=== PATIENT | female | born 1995 | race Caucasian/White ===

== ENCOUNTER 2021-08-08 18:54 | Emergency (ER) | payer OTHER, SELFPAY ==
[2021-08-08 18:55] VITALS: BP 115/84; PULSE 92; RESP 14; TEMP 36.8; O2SAT 96; BMI 24.2
--- NOTE | 2021-08-08 19:15 | EX.ED.DYSGE1 ---
HPI History of Present Illness Chief Complaint: Abd Pain Informant: patient Onset/Context/Timing Onset: Today Context: Gradual Onset Current Severity: Moderate Maximum Severity: Severe Narrative Narrative: Patient presents secondary to epigastric abdominal pain. Patient started this morning. She was able to eat to bagels for breakfast without difficulty. Since then she had increasing pain to the epigastrium with nausea and vomiting. No diarrhea. No recent alcohol consumption. No history of gallstones. She has tried Pepto, Tums, Margoth-Pamplico without improvement. No prior abdominal surgeries. [facility] Medical History (Updated 08/08/21 @ 20:[address] 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 Home Medications dicyclomine 20 mg PO BID PRN #20 tab 08/08/21 [Rx Last Taken Unknown] omeprazole 40 mg PO DAILY 14 Days #14 cap 08/08/21 [Rx Last Taken Unknown] ondansetron 4 mg PO Q8H PRN #10 tab 08/08/21 [Rx Last Taken Unknown] Allergy/AdvReac Type Severity Reaction Status Date / Time diphenhydramine Allergy Hives Verified 08/08/21 18:57 [From Benadryl] Social History Smoking Status: Current every day smoker tobacco type: cigarettes ROS ROS ED Constitutional Constitutional ED: Denies chills or fever(s) Eyes Eyes: Denies change in vision ENT ENT ED: Denies sore throat Cardiovascular Cardiovascular: Denies chest pain Respiratory/Chest Respiratory/Chest: Denies cough or dyspnea Gastrointestinal Gastrointestinal: Reports abdominal pain, nausea and vomiting; Denies diarrhea Genitourinary Genitourinary ED: Denies dysuria Musculoskeletal Musculoskeletal: Denies back pain Integumentary Denies rash Neurologic Neurologic: Denies headache(s) or weakness Allergic/Immunologic Allergic/Immunologic ED: Denies urticaria EXAM Physical Exam Const Vital Signs: 08/08/21 18:55 Temperature 98.2 F Temperature Source Temporal Pulse Rate 92 Respiratory Rate 14 Blood Pressure 115/84 H Blood Pressure Mean 94 Pulse Ox 96 Oxygen Delivery Method Room Air Positive well nourished and well developed General Appearance ED: well developed HEENT Reports moist mucous membranes Eyes PERRL and EOMs intact bilaterally Neck supple Chest Wall inspection of chest normal and palpation of chest normal Resp normal respiratory effort and clear to auscultation bilaterally Cardio regular rate and regular rhythm GI Auscultation: hypoactive bowel sounds Palpation: soft and tender epigastric Extremity normal to inspection Neuro oriented x3 Sensorium / Orientation: alert Psych Mood & Affect: anxious Skin no rashes or lesions noted MDM MDM MDM Narrative Medical decision making narrative: Patient given morphine and Zofran along with Protonix. IV fluids given. Lab work obtained. Lab Data Attestation: I reviewed the patient's lab results. Labs: Laboratory Results - last 24 hr 08/08/21 08/08/21 08/08/21 19:30 19:30 19:30 WBC 9.8 RBC 4.31 Hgb 12.1 Hct 36.4 L MCV 84.5 MCH 28.1 MCHC 33.2 RDW Std Deviation 39.5 RDW Coeff of Evelio 12.7 Plt Count 212 MPV 11.3 Immature Gran % (Auto) 0.100 Neut % (Auto) 84.9 H Lymph % (Auto) 8.8 L [place] % (Auto) 4.4 Eos % (Auto) 1.5 Baso % (Auto) 0.3 Absolute Neuts (auto) 8.3 H Absolute Lymphs (auto) 0.86 Nucleated RBC % 0 Sodium 138 Potassium 4.0 Chloride 110 H Carbon Dioxide 22.0 Anion Gap 6 BUN 12 Creatinine 0.68 Estim Creat Clear Calc 111.82 Est GFR (MDRD) Af Amer 134 Est GFR (MDRD) Non-Af 111 BUN/Creatinine Ratio 17.7 Glucose 101 Calcium 8.1 L Total Bilirubin 0.30 Direct Bilirubin 0.08 AST 13 L ALT 16 Alkaline Phosphatase 82 Total Protein 7.4 Albumin 3.7 Globulin 3.7 Lipase 79 Serum , Qual NEGATIVE Treatment and Re-Evaluation Comments:: On repeat evaluation patient sleeping comfortably. She is easily awoken. Lab work reviewed with her and unremarkable. She states her pain at this time is resolved. I will write her prescriptions for Prilosec, Zofran, and Bentyl. Return instructions provided. She is given a work note for tonight. Discharge Plan Triage Chief Complaint: Abd Pain ED Provider: Estefany Dickson Dx/Rx/DC Orders Clinical Impression: Epigastric pain Instructions: ED PEPTIC ULCER vs GASTRITIS Prescriptions: New ondansetron 4 mg tablet,disintegrating 4 mg PO Q8H PRN (Reason: nausea and vomiting) Qty: 10 RF: 0 dicyclomine 20 mg tablet 20 mg PO BID PRN (Reason: abdominal cramping) Qty: 20 RF: 0 omeprazole 40 mg capsule,delayed release(DR/EC) 40 mg PO DAILY 14 Days Qty: 14 RF: 0 Stand Alone Forms: ED Work / School Excuse Primary Care Provider: Care Physician,No Primary Referrals: Shae Abarca MD [STAFF PHYSICIAN] - As Needed Care Physician,No Primary [Primary Care Provider] - Disposition Disposition: Home, Self Care
[2021-08-08] MEDS: Morphine 4 MG/ML Syringe IV (19:40)
[2021-08-08] MEDS: 0.9% Normal Saline 1,000 ML 1000 ML IV (19:40)
[2021-08-08] MEDS: Ondansetron 4 MG/2 ML Vial IV (19:41)
[2021-08-08 19:48] LABS: Absolute Lymphocyte Count 0.86 X10^3/uL (0.83-4.51); Absolute Neutrophil Count 8.3 X10^3/uL (2.0-7.7); Basophil# 0.03 X10^3/uL; Basophil% 0.3 % (0-1); Eosinophil# 0.15 X10^3/uL; Eosinophils% 1.5 % (0-5); Hematocrit 36.4 % (37-47); Hemoglobin 12.1 g/dL (12.0-15.0); Lymphocyte # 0.86 X10^3/ul (0.83-4.51); Lymphocyte % 8.8 % (19-41); Mean Corp Hgb Conc 33.2 g/dL (32-36); Mean Corpuscular Hgb 28.1 pg (27.0-32.0); Mean Corpuscular Volume 84.5 fL (81-99); Mean Platelet Vol. 11.3 fl (6.2-12.0); Monocyte# 0.43 X10^3/uL; Monocyte% 4.4 % (0-10); NRBC Flagged by Analyzer 0 % (0-5); Neutrophil # 8.28 X10^3/uL (2.7-7.7); Neutrophil % 84.9 % (47-70); Platelet Count 212 K/mm3 (150-450); RBC Distribution Width CV 12.7 % (11.6-14.6); RBC Distribution Width SD 39.5 fl (35.1-43.9); Red Blood Count 4.31 M/mm3 (4.2-5.4); White Blood Count 9.8 K/mm3 (4.4-11.0)
[2021-08-08 20:15] LABS: AST(SGOT) 13 U/L (15-37); Alanine Aminotransfer ALT/SGPT 16 U/L (13-56); Albumin, Serum 3.7 g/dL (3.2-5.0); Alkaline Phosphatase 82 U/L (45-117); Anion Gap 6 (5-15); BUN 12 mg/dL (7-18); BUN/Creat Ratio 17.7 RATIO (10-20); Bilirubin, Direct 0.08 mg/dL (0.00-0.30); Calcium,Total 8.1 mg/dL (8.5-10.1); Chloride 110 mmol/L (98-107); Creatinine, Serum 0.68 mg/dL (0.55-1.02); EST Glomerular Filtration Rate 111 mL/min (>60); Est Glom Filt Rate - Afr Amer 134 mL/min (>60); Estimated Creatinine Clearance 111.82 ml/min; Globulin 3.7 g/dL (2.2-4.2); Glucose 101 mg/dL (74-106); Lipase 79 U/L (73-393); Protein, Total 7.4 g/dL (6.4-8.2); Sodium Level 138 mmol/L (136-145)
[2021-08-08 20:17] LABS: Internal QC Validated? YES +Cl - CLEAR BKGD; Pregnancy, Serum, hCG Quali. NEGATIVE Negative
== END 2021-08-08 20:47 | disposition home or self-care (01) ==
PROVIDERS: Emergency Provider Emergency Medicine; Visit Provider Emergency Medicine
DX: R10.13 Epigastric pain (principal); F17.210 Nicotine dependence, cigarettes, uncomplicated; R11.2 Nausea with vomiting, unspecified
CPT/HCPCS: 80048; 80076; 83690; 84703; 85025; 96365; 96375; 99283; J7030; A4216; J2405

== ENCOUNTER 2022-08-10 16:05 | Emergency (ER) | payer SELFPAY ==
[2022-08-10 16:06] VITALS: BP 116/79; PULSE 62; RESP 14; TEMP 36.8; O2SAT 98; BMI 25.1
[2022-08-10 16:18] VITALS: BP 122/74; PULSE 77; RESP 15; TEMP 36.9; O2SAT 99
--- NOTE | 2022-08-10 16:43 | EX.ED.DYSGE1 ---
HPI History of Present Illness Chief Complaint: Wound Informant: patient Narrative Narrative: Worsening swelling to chin over the past week. Now increased tenderness due to swelling. No fevers no drainage no trauma. No history of similar. History of iron deficient anemia takes [id number] medications does not have a PCP. Allergy to Benadryl. 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 Kidney stones Home Medications dicyclomine 20 mg tablet 20 mg PO BID PRN abdominal cramping #20 tabs 08/08/21 [Rx Last Taken Unknown] omeprazole 40 mg capsule,delayed release 40 mg PO DAILY 14 days #14 caps 08/08/21 [Rx Last Taken Unknown] ondansetron 4 mg disintegrating tablet 4 mg PO Q8H PRN nausea and vomiting #10 tabs 08/08/21 [Rx Last Taken Unknown] doxycycline hyclate 100 mg capsule 100 mg PO BID #20 caps 08/10/22 [Rx Last Taken Unknown] Allergy/AdvReac Type Severity Reaction Status Date / Time diphenhydramine Allergy Hives Verified 08/08/21 18:57 [From Benadryl] Social History Smoking Status: Current every day smoker tobacco type: cigarettes ROS ROS ED Constitutional Constitutional ED: Denies chills, fever(s) or sweats Eyes Eyes: Denies change in vision ENT ENT ED: Denies dysphagia or sore throat Cardiovascular Cardiovascular: Denies chest pain, leg edema, palpitations or racing heartbeat Respiratory/Chest Respiratory/Chest: Denies cough, dyspnea or dyspnea on exertion Gastrointestinal Gastrointestinal: Denies abdominal pain, diarrhea, nausea or vomiting Genitourinary Genitourinary ED: Denies dysuria, hematuria or urinary frequency Musculoskeletal Musculoskeletal: Denies back pain, extremity pain or neck pain Integumentary Reports wounds; Denies rash Neurologic Neurologic: Denies headache(s), paresthesias or weakness EXAM Physical Exam Const Vital Signs: 08/10/22 16:06 08/10/22 16:18 08/10/22 17:22 Temperature 98.2 F 98.4 F 98.2 F Temperature Source Temporal Temporal Temporal Pulse Rate 62 77 70 Respiratory Rate 14 15 14 Blood Pressure 116/79 122/74 H 134/80 H Blood Pressure Mean 91 90 98 Pulse Ox 98 99 99 Oxygen Delivery Method Room Air Room Air Room Air Positive well nourished and well developed General Appearance ED: well developed and NAD HEENT Reports moist mucous membranes HEENT Narrative: Examination golf ball size swelling induration lower chin, erythema local to this region, is tender to palpation no fluctuance. No drainage. There is a small irritation skin right lower chin. No active drainage. normocephalic Eyes PERRL, EOMs intact bilaterally and conjunctivae normal General Eye ED: Yes normal appearance of both eyes Neck no lymphadenopathy and supple General: Negative for tenderness Chest Wall Chest: Negative for tenderness Resp normal respiratory effort and normal air movement Effort and Inspection: symmetric chest movement; Negative for respiratory distress Cardio regular rate, regular rhythm and no murmurs Peripheral Pulses: pulses 2+ throughout GI normal to inspection, nondistended, normoactive bowel sounds and non-tender Palpation: Negative for guarding or rebound tenderness present Back/Spine no CVA tenderness and no thoracic nor lumbar tenderness Extremity normal to inspection General Extremety ED: Negative for edema or tenderness General Extremity: Negative for edema Neuro oriented x3 and no sensory deficits noted Sensorium / Orientation: awake and alert Skin no rashes or lesions noted and no wounds MDM MDM MDM Narrative Medical decision making narrative: Patient new swelling chin. Differential cellulitis versus abscess. I placed a bedside ultrasound there is minimal fluid collection right lower. Discussed with patient for needle aspiration try to help with symptoms with at least creating a tract to help with drainage and improvement. She agrees. Performed there was serosanguineous fluid with mild exudates. She is covered with doxycycline. She is given follow-up as an outpatient. Return precautions. All questions were answered. Procedure note: Verbal consent. Needle aspiration. Skin was prepped with alcohol pad, 2 cc 1% lidocaine used for local analgesia. Betadine prep of the skin, 18-gauge needle advanced lower right chin with aspiration. There was minimal exudates with serosanguineous fluid. Multiple regions were aspirated at the 3, 12 and 11:00 positions. Patient tolerated procedure well. Bandage was placed by myself. Discharge Plan Triage Chief Complaint: Wound ED Provider: Mario Edgar Dx/Rx/DC Orders Clinical Impression: Abscess or cellulitis of chin Instructions: Abscess Drainage Prescriptions: New doxycycline hyclate 100 mg capsule 100 mg PO BID Qty: 20 0RF No Action ondansetron 4 mg tablet,disintegrating 4 mg PO Q8H PRN (Reason: nausea and vomiting) Qty: 10 0RF dicyclomine 20 mg tablet 20 mg PO BID PRN (Reason: abdominal cramping) Qty: 20 0RF omeprazole 40 mg capsule,delayed release(DR/EC) 40 mg PO DAILY 14 Days Qty: 14 0RF Primary Care Provider: Care Physician,No Primary Referrals: Ngozi Jon [Non-Staff] - 1-2 Weeks Care Physician,No Primary [Primary Care Provider] - Activity Restrictions/Additional Instructions: Status post needle drainage. Take antibiotic as prescribed. Follow-up as an outpatient. Return if worsening symptoms. Disposition Disposition: Home, Self Care Discharge Date/Time: 08/10/22 17:25
[2022-08-10] MEDS: Doxycycline 100 MG CAPSULE PO (16:54)
[2022-08-10 17:22] VITALS: BP 134/80; PULSE 70; RESP 14; TEMP 36.8; O2SAT 99
== END 2022-08-10 17:25 | disposition home or self-care (01) ==
PROVIDERS: Emergency Provider Emergency Medicine; Visit Provider Emergency Medicine
DX: L02.01 Cutaneous abscess of face (principal); L03.211 Cellulitis of face; F17.210 Nicotine dependence, cigarettes, uncomplicated
CPT/HCPCS: 10160; 99283; A4216

== ENCOUNTER 2025-01-05 14:40 | Outpatient (RCR) | payer OTHER, SELFPAY ==
--- NOTE | 2025-01-05 15:50 | HP.PTEVAL_ITS ---
Patient's Visit Information Visit Information Visit Information: MARCELINO SKELTON is a 29 year old F referred to Physical Therapy by IGNACIO Hewitt with a diagnosis of Lumbar strain. Date of Evaluation: 01/05/25 Physical Therapist: Maldonado Acevedo, PT, ATC Visit Plan Frequency: 2-3x /Week Duration: 4 Weeks Plan: Postural edu, prone prop progression, REIL, core strengthening, and HEP Subjective Subjective: Pt reports she injured her LB on 12/22/24 while lifting an object at work. Pt reports she has been doing this job for many months, but this is the first time she actually hurt her LB. Pt reports this is the worst pain she has ever had. Pt denies any tingling or numbness at this time. Pt reports sleep difficulty at this time secondary to pain. Pt reports she has had xrays which revealed no significant findings. Pt reports she is in pain whether she is sitting, standing, laying down, and all activity. Pt reports she is not able to go grocery shopping, clean her laundry, or clean her house secondary to pain. Pt reports forward bending is what gives her the most pain. Pt also notes bending backwards causes increased pain. Pt also has pain sit standing up after sitting for a while. Pt reports her pain ranges from 4-8/10 at this time. Pain LBP: Pain Intensity (Out of 10): 4 Pain Intensity Range: 8 Objective Objective: Neuro: B LE sensation is WNL to light touch. B patellar reflex 2/3 MMT: B hip flexion and L knee flexion 4-/5. All other measurements 5/5 throughout ROM: Pt is moderately limited with flexion, Pt is severely blocked into extension. B sidebending is equal. Repeated movements: Unable to perform secondary to pain. Prone prop 45 sec x 3 had NE Balance/Special Test Scores Oswestry Low Back Score: 23 Goals Goal 1:: Decrease LBP x 50% to aid with sleep Goal Time Frame: 4-6 Weeks Goal 2:: Increase L/S extension ROM to WFL to aid with decreasing pain Goal Time Frame: 4-6 Weeks Goal 3:: Pt will be able to return to work without limitations Goal Time Frame: 4-6 Weeks Goal 4:: I with HEP Goal Time Frame: 4-6 Weeks Rehabilitation Potential Physical Therapy Diagnosis: Pt has LBP, limited lumbar spine ROM, and difficulty with sleep secondary to L/S disc derangement Rehabilitation Potential: Good Anticipated Interventions Patient/Client Instruction: Educate patient on: Condition and Plan of Care For the Purpose of:: To improve self management Therapeutic Exercise to Include: Strength training, Endurance training, Body mechanics, Postural training, Active ROM, Dynamic Lumbar Stabilization and La Exercises For the Purpose of:: To decrease pain, To improve muscle performance and motor function and To increase tolerance to activity/condition/position Text: Thank you for the opportunity to evaluate your patient. For Medicare and Medicare HMO plans, please review the plan of care and approve it. It will need to be FAXED BACK to us at [phone] for Medicare purposes. For Medicare only, by signing this I certify the plan of care. Please let me know if there are questions or concerns regarding this plan of c are. Physician Signature: Date:
--- NOTE | 2025-03-10 10:20 | HP.PT.NRP ---
Patient Information Patient Information: MARCELINO SKELTON was seen in my office for initial evaluation on 01/05/25. The following Plan of Care was established for this patient: POC Established Initial Frequency: 2-3x /Week Initial Duration: 4 Weeks Anticipated Interventions Patient/Client Instruction: Educate patient on: Condition and Plan of Care For the Purpose of:: To improve self management Therapeutic Exercise to Include: Strength training, Endurance training, Body mechanics, Postural training, Active ROM, Dynamic Lumbar Stabilization and La Exercises For the Purpose of:: To decrease pain, To improve muscle performance and motor function and To increase tolerance to activity/condition/position Last Seen Last Seen: This patient was last seen in our office . Pertinent comments regarding their Physical therapy will appear below: Pt has not returned in greater than 30 days and is discontinued at this time. At this point I will be discontinuing this patient from physical therapy. I would be happy to see this patient again in the future if found appropriate by the physician. Thank you! Maldonado Acevedo, PT, ATC Balance/Gait/Functional tests Balance/Special Test Scores Oswestry Low Back Score: 23
== END 2025-01-05 19:00 | disposition home or self-care (01) ==
LOC: PT 14:40
PROVIDERS: Referring Provider Physician Assistant; Visit Provider Physician Assistant
DX: S39.012D Strain of muscle, fascia and tendon of lower back, subsequent encounter (principal)
CPT/HCPCS: 97161